=== PATIENT | female | born 1975 | race Caucasian/White ===

== ENCOUNTER 2018-06-09 10:19 | Emergency (ER) | payer MEDICAID ==
[~2018-06-09] VITALS: Ht 160 cm; Wt 74.0 kg
[2018-06-09 10:30] VITALS: BP 126/72
[2018-06-09] MEDS ORDERED: NAPR-56 PO (11:46)
[2018-06-09] MEDS ORDERED: acetaminophen 325mg tablet PO ONE (11:50)
[2018-06-09] MEDS ORDERED: ibuprofen tablet 400 MG TABLET PO ONE (11:50)
== END 2018-06-09 12:17 | disposition home or self-care (01) ==
LOC: ER 10:20
DX: S93.492A Sprain of other ligament of left ankle, initial encounter (principal); Z56.0 Unemployment, unspecified; Z59.0 Homelessness; Z79.899 Other long term (current) drug therapy; W18.39XA Other fall on same level, initial encounter; Y93.89 Activity, other specified; Y92.89 Other specified places as the place of occurrence of the external cause; Y99.8 Other external cause status
CPT/HCPCS: 73610; 99284; A6449

== ENCOUNTER 2019-12-29 22:38 | Emergency (ER) | payer MEDICAID ==
[~2019-12-29] VITALS: Ht 160 cm; Wt 77.0 kg
[2019-12-29 23:33] LABS: URINE HCG NEGATIVE (NEG)
[2019-12-29 23:42] LABS: ALANINE AMINOTRANSFERASE 27 U/L (12-78); ALBUMIN 3.6 G/DL (3.4-5.0); ALBUMIN/GLOBULIN RATIO 0.8 (1.1-1.5); ALKALINE PHOSPHATASE 107 IU/L (46-116); ANION GAP 6 (8-16); ASPARTATE AMINO TRANSFERASE 15 U/L (10-37); BILIRUBIN,TOTAL 0.5 MG/DL (0.1-1.0); BLOOD UREA NITROGEN 7 MG/DL (7-18); BUN/CREATININE RATIO 7.8 (6.6-38.0); CALCIUM 8.4 MG/DL (8.5-10.1); CHLORIDE 103 MMOL/L (99-107); GLUCOSE 100 MG/DL (70-104); LIPASE 94 U/L (73-393); POTASSIUM 3.7 MMOL/L (3.5-5.1); SODIUM 139 MMOL/L (135-145); eGFR 69 ML/MIN
[2019-12-29 23:43] LABS: CLARITY,URINE CLEAR (Clear); COLOR,URINE YELLOW (Yellow); GLUCOSE, URINE NEGATIVE (Neg); KETONES,URINE NEGATIVE (Neg); LEUKOCYTE ESTERASE ,URINE NEGATIVE (Neg); NITRITES, URINE NEGATIVE (Neg); OCCULT BLOOD,URINE NEGATIVE (Neg); PROTEIN,URINE NEGATIVE (Neg); UROBILINOGEN,URINE 0.2 E.U/dL (0.2-1.0)
[2019-12-29 23:44] LABS: BASOPHILS # (AUTO) 0.1 X10'3 (0-0.2); BASOPHILS % (AUTO) 0.6 % (0-1); EOSINOPHILS # (AUTO) 0.1 X10'3 (0-0.9); EOSINOPHILS % (AUTO) 0.9 % (0-6); HEMATOCRIT 43.8 % (35.0-45.0); HEMOGLOBIN 14.6 g/dl (12.0-16.0); LYMPHOCYTES # (AUTO) 1.8 X10'3 (1.1-4.8); LYMPHOCYTES % (AUTO) 12.3 % (21-51); MEAN CORPUSCULAR HGB CONC 33.4 g/dL (33.0-36.5); MEAN CORPUSCULAR VOLUME 86.9 FL (78-98); MEAN PLATELET VOLUME 7.8 FL (7.4-10.4); MONOCYTES % (AUTO) 6.5 % (2-12); NEUTROPHILS # (AUTO) 11.8 X10'3 (1.8-7.7); NEUTROPHILS % (AUTO) 79.7 % (42-75); PLATELET COUNT 269 X10'3 (140-440); RED BLOOD COUNT 5.04 X10'6 (4.20-5.60); RED CELL DISTRIBUTION WIDTH 13.9 % (11.5-14.5); WHITE BLOOD COUNT 14.8 X10'3 (4.5-11.0)
[2019-12-29 23:46] LABS: UA COLLECTION TYPE CLN CATCH MIDSTREAM
[2019-12-30] MEDS ORDERED: METR-159 PO (00:54)
[2019-12-30] MEDS ORDERED: CIPR-230 PO (00:54)
[2019-12-30] MEDS ORDERED: HYDR-3965 PO (00:55)
[2019-12-30] MEDS ORDERED: ciprofloxacin 250mg tablet PO ONE (00:55)
[2019-12-30] MEDS ORDERED: metroNIDAZOLE 500mg tablet PO ONE (00:55)
[2019-12-30] MEDS ORDERED: HYDROcodone/acetaminophen 5mg/325mg tablet PO ONE (00:55)
[2019-12-30 01:20] VITALS: BP 127/75
== END 2019-12-30 01:23 | disposition home or self-care (01) ==
LOC: ER 22:39
DX: K57.32 Diverticulitis of large intestine without perforation or abscess without bleeding (principal); R10.30 Lower abdominal pain, unspecified; Z59.0 Homelessness; Z56.0 Unemployment, unspecified; Z90.710 Acquired absence of both cervix and uterus
CPT/HCPCS: 36415; 74176; 80053; 81003; 81025; 83690; 85025; 99284; J3490

== ENCOUNTER 2020-01-04 22:20 | Emergency (ER) | payer MEDICAID ==
[~2020-01-04] VITALS: Ht 160 cm; Wt 79.3 kg
[~2020-01-04 22:20] MED LIST: CIPR-230 PO; HYDR-3965 PO; METR-159 PO
[2020-01-04 22:26] VITALS: BP 141/106
[2020-01-04] MEDS ORDERED: diphenhydrAMINE 25mg capsule PO ONE (23:40)
== END 2020-01-05 | disposition home or self-care (01) ==
LOC: ER 22:20
DX: R21 Rash and other nonspecific skin eruption (principal); Z90.710 Acquired absence of both cervix and uterus; Z59.0 Homelessness; Z56.0 Unemployment, unspecified; Z79.2 Long term (current) use of antibiotics; Z79.899 Other long term (current) drug therapy
CPT/HCPCS: 99281

== ENCOUNTER 2022-09-05 19:06 | Emergency (ER) | payer MEDICAID ==
[~2022-09-05] VITALS: Ht 160 cm; Wt 81.0 kg
[2022-09-05] MEDS ORDERED: proparacaine 0.5% ophthalmic drops 15ml EACHEYE ONE (19:55)
[2022-09-05] MEDS ORDERED: CIPR2.5D21 EACHEYE (20:47)
[2022-09-05 21:06] VITALS: BP 120/66
[2022-09-06] MEDS ORDERED: ciprofloxacin 0.3% 2.5ml ophthalmic solution EACHEYE SCH
== END 2022-09-05 21:07 | disposition home or self-care (01) ==
LOC: ER 19:07
DX: S05.01XA Injury of conjunctiva and corneal abrasion without foreign body, right eye, initial encounter (principal); X58.XXXA Exposure to other specified factors, initial encounter; Y93.89 Activity, other specified; Y92.89 Other specified places as the place of occurrence of the external cause; Y99.8 Other external cause status
CPT/HCPCS: 65222; 99284